=== PATIENT | male | born 1970 | race Caucasian/White ===

== ENCOUNTER 2016-08-29 16:06 | Emergency (ER) | payer OTHER ==
[2016-08-29 16:26] VITALS: BP 139/83
[2016-08-29] MEDS ORDERED: Tetan/Diph/Pertus SYR(Tdap)* 0.5 ML SYR(BOOSTRIX) use SYR IM ONE (16:39)
[2016-08-29] MEDS ORDERED: Rabies Immune Globulin(HUMAN)* 150 UNIT/ML 10 ML IM ONE ×2 (16:39→16:56)
[2016-08-29] MEDS ORDERED: Rabies Vaccine, PCEC INJ IM ONE (16:42)
--- NOTE | 2016-08-29 16:46 | UC ---
Bite Injury/Animal HPI - HPI Summary HPI Summary: Encountered bat last night in bathroom, did not think there was a bite, but felt flapping on lower back and back of neck. - History of Current Complaint Chief Complaint: UCGeneralIllness Stated Complaint: RABIES SHOT Time Seen by Provider: 08/29/16 16:16 Hx Obtained From: Patient Severity Currently: None Onset/Duration: Sudden Onset Type of Bite: Wild Animal Has Animal Been Immunized?: N/A Aggravating Factor(s): Nothing Alleviating Factor(s): Nothing Associated Signs And Symptoms: Positive: Negative Hx of Bite: Unprovoked Animal Available for Observation: No Animal Control Notified: Yes - Allergies/Home Medications Allergies/Adverse Reactions: Allergies Allergy/AdvReac Type Severity Reaction Status Date / Time No Known Allergies Allergy Verified 08/29/16 16:26 Home Medications: Home Medications Pravastatin Sodium [Pravachol] 40 mg PO 08/29/16 [History] PMH/Surg Hx/FS Hx/Imm Hx Previously Healthy: Yes - Surgical History Surgical History: Yes Surgery Procedure, Year, and Place: [facility] - Family History Known Family History: Negative: Blood Disorder - Social History Lives: With Family Alcohol Use: Rare Substance Use Type: None Smoking Status (MU): Never Smoked Tobacco Review of Systems Constitutional: Negative Skin: Other - bat exposure Eyes: Negative ENT: Negative Respiratory: Negative Cardiovascular: Negative Gastrointestinal: Negative Genitourinary: Negative Motor: Negative Neurovascular: Negative Musculoskeletal: Negative Neurological: Negative Psychological: Negative All Other Systems Reviewed And Are Negative: Yes Physical Exam Triage Information Reviewed: Yes Appearance: Well-Appearing, No Pain Distress, Well-Nourished Vital Signs: Initial Vital Signs Temp 97.6 F 08/29/16 16:19 Pulse 90 08/29/16 16:19 Resp 20 08/29/16 16:19 BP 139/83 08/29/16 16:19 Pulse Ox 97 08/29/16 16:19 Vital Signs Reviewed: Yes Eye Exam: Normal Eyes: Positive: Conjunctiva Clear ENT Exam: Normal ENT: Positive: Normal ENT inspection, Hearing grossly normal, Pharynx normal, TMs normal Neck exam: Normal, Other - skin intact, no bite wounds noted Neck: Positive: Supple, Nontender, No Lymphadenopathy Respiratory Exam: Normal Respiratory: Positive: Chest non-tender, Lungs clear, Normal breath sounds, No respiratory distress, No accessory muscle use Cardiovascular Exam: Normal Cardiovascular: Positive: RRR, No Murmur Musculoskeletal Exam: Normal Neurological Exam: Normal Neurological: Positive: Alert Psychological Exam: Normal Skin Exam: Normal Bite Injury Course/Dx - Differential Dx/Diagnosis Provider Diagnoses: Rabies exposure. rabies prophylaxis Discharge - Discharge Plan Condition: Stable Disposition: HOME Patient Education Materials: Rabies Immune Globulin (By injection), Rabies (ED) Referrals: Yesenia Fernandez [Primary Care Provider] - Additional Instructions: Follow up with the [facility] for your subsequent rabies shots.
== END 2016-08-29 17:54 | disposition home or self-care (01) ==
LOC: UCEAST 16:06
DX: Z20.3 Contact with and (suspected) exposure to rabies (principal); Z23 Encounter for immunization
CPT/HCPCS: 90375; 90471; 90472; 90675; 90715; 96372; 99211; G0463

== ENCOUNTER 2023-03-08 14:16 | Observation (INO) ==
[2023-03-08 15:18] LABS: Hematocrit 44.6 % (38-53); Hemoglobin 15.2 g/dL (13.2-16.3); Mean Corpuscular Hemoglobin 32.1 pg (27-33); Mean Corpuscular Hgb Conc 34.1 g/dL (31-36); Mean Platelet Volume 8.7 fL (7.5-11.2); Platelet Count 275 10^3/uL (150-450); Red Blood Count 4.75 10^6/uL (4.06-5.63); Red Cell Distribution Width 12.7 % (12-17); White Blood Count 25.1 10^3/uL (3.6-10.2)
[2023-03-08 15:34] LABS: Albumin 4.3 g/dL (3.2-5.2); Albumin/Globulin Ratio 1.1 (1-3); Calcium 9.2 mg/dL (8.6-10.3); Creatinine, Serum 1.06 mg/dL (0.67-1.17); Globulin 3.8 g/dL (2-4); Potassium 3.8 mmol/L (3.5-5.0); Total Protein 8.1 g/dL (6.4-8.9); eGFR CKD-EPI 84.4 (>60)
[2023-03-08 15:48] LABS: Urine Appearance Cloudy; Urine Bilirubin Negative (Negative); Urine Blood Negative (Negative); Urine Color Amber; Urine Glucose Negative (Negative); Urine Ketones Negative (Negative); Urine Nitrite Negative (Negative); Urine Protein 3+(>=500 mg/dL) (Negative); Urine Specific Gravity 1.037 (1.002-1.030); Urine Urobilinogen Positive (Negative)
[2023-03-08] MEDS ORDERED: Lactated Ringers 1000 ml BAG 1,000 ML IV ONE (15:50)
[2023-03-08] MEDS ORDERED: Piperacillin/Tazobac 3.375 BAG 3.375 GM/100 ML BAG IV ONE (15:50)
[2023-03-08 16:34] LABS: ABS Monocytes 1.7 10^3/uL (0.0-1.1); ABS Neutrophils 22.3 10^3/uL (1.5-7.6); ABS Nucleated RBC 0.03 10^3/ul; Eosinophil % 0.2 %; Nucleated Red Blood Cells % 0.1 %/100WBC (0.0-0.8)
[2023-03-08 16:39] LABS: Urine Bacteria Absent (Absent); Urine Red Blood Cell Trace(0-2/hpf) (Absent); Urine White Blood Cell 1+(6-10/hpf) (Absent)
[2023-03-08] MEDS ORDERED: Ondansetron 4 mg VIAL 2 MG/ML 2 ml VIAL IV PRN (19:04)
[2023-03-08] MEDS ORDERED: HYDROmorphone 0.5 MG/0.5 ML SYRINGE IV SLOW PU PRN (19:04)
[2023-03-08] MEDS: Lactated Ringers 1000 ml BAG 1,000 ML IV SCH (19:47)
[2023-03-08] MEDS: Piperacillin/Tazobac 3.375 BAG 3.375 GM/100 ML BAG IV SCH (21:44)
[2023-03-09] MEDS: Lactated Ringers 1000 ml BAG 1,000 ML IV SCH (02:01)
[2023-03-09] MEDS: Piperacillin/Tazobac 3.375 BAG 3.375 GM/100 ML BAG IV SCH ×3 (05:01→17:53)
[2023-03-09 06:06] LABS: Albumin 3.4 g/dL (3.2-5.2); Calcium 8.4 mg/dL (8.6-10.3); Creatinine, Serum 0.82 mg/dL (0.67-1.17); Globulin 3.3 g/dL (2-4); Potassium 3.5 mmol/L (3.5-5.0); Total Protein 6.7 g/dL (6.4-8.9); eGFR CKD-EPI 105.7 (>60)
[2023-03-09 06:16] LABS: ABS Lymphocytes 0.9 10^3/uL (1.0-4.8); ABS Neutrophils 12.6 10^3/uL (1.5-7.6); Eosinophil % 0.2 %; Hematocrit 38.7 % (38-53); Hemoglobin 13.1 g/dL (13.2-16.3); Lymphocyte % 6.1 %; Mean Corpuscular Hemoglobin 31.6 pg (27-33); Mean Corpuscular Hgb Conc 33.8 g/dL (31-36); Mean Corpuscular Volume 93.5 fL (80-97); Mean Platelet Volume 8.7 fL (7.5-11.2); Platelet Count 236 10^3/uL (150-450); Red Blood Count 4.14 10^6/uL (4.06-5.63); Red Cell Distribution Width 12.4 % (12-17); White Blood Count 14.5 10^3/uL (3.6-10.2)
[2023-03-09] MEDS ORDERED: Bupivacaine 0.25% SDV 30 ML ONE (09:03)
[2023-03-09] MEDS ORDERED: Propofol 10 MG/ML 20 ML BTL ONE (09:12)
[2023-03-09] MEDS ORDERED: Rocuronium 50 mg VIAL 10 mg/ml 5 ml VIAL (50 mg) ONE ×2 (09:12→11:21)
[2023-03-09] MEDS ORDERED: Lidocaine 2% PF 5 ML VIAL ONE (09:12)
[2023-03-09] MEDS ORDERED: fentaNYL 100 mcg/2 ml 50 MCG/ML VIAL ONE ×4 (09:12→12:06)
[2023-03-09] MEDS ORDERED: Midazolam 2 mg/2 ml VIAL 1 mg/ml 2 ml VIAL (2 mg) ONE (09:12)
[2023-03-09] MEDS ORDERED: Dexamethasone IV 4 MG/ML VIAL 1 ml VIAL ONE (09:37)
[2023-03-09] MEDS ORDERED: Famotidine IV 10 MG/ML 2 ml VIAL (20 mg) ONE (09:38)
[2023-03-09] MEDS ORDERED: Ondansetron 4 mg VIAL 2 MG/ML 2 ml VIAL ONE (12:14)
[2023-03-09] MEDS ORDERED: Lactated Ringers 1000 ml BAG 1,000 ML IV SCH (12:42)
[2023-03-09] MEDS ORDERED: HYDROmorphone 0.5 MG/0.5 ML SYRINGE IV SLOW PU PRN (12:42)
[2023-03-09] MEDS: NS 0.9% 1,000 ML IV SCH (16:42)
[2023-03-10] MEDS: Piperacillin/Tazobac 3.375 BAG 3.375 GM/100 ML BAG IV SCH ×2 (01:27→09:52)
[2023-03-10] MEDS: NS 0.9% 1,000 ML IV SCH (05:51)
[2023-03-10 08:51] LABS: Albumin 3.4 g/dL (3.2-5.2); Albumin/Globulin Ratio 1.1 (1-3); Calcium 7.7 mg/dL (8.6-10.3); Creatinine, Serum 0.87 mg/dL (0.67-1.17); Globulin 3.2 g/dL (2-4); Potassium 3.9 mmol/L (3.5-5.0); Total Bilirubin 0.6 mg/dL (0.2-1.0); Total Protein 6.6 g/dL (6.4-8.9); eGFR CKD-EPI 103.8 (>60)
[2023-03-10 17:49] VITALS: BP 134/88
[2023-03-10] MEDS ORDERED: CMCS: Pravastatin 20 mg TAB (NF) PO SCH (21:00)
[2023-03-10] MEDS ORDERED: Amoxicillin/Clavul 500/125 TAB (Augmentin 500 mg tab) PO SCH (21:00)
== END 2023-03-10 18:30 | disposition home or self-care (01) ==
LOC: ED 14:16 → EDHOLD 14:16 → SSU 03-09 08:43 → SDS 03-09 09:18 → INTOOBSV 03-09 14:39 → SSU 03-09 14:39
PROVIDERS: ADMIT Surgery; ATTEND Surgery